=== PATIENT | female | born 1990 | race Two or more races ===

== ENCOUNTER → 2021-09-28 | Emergency (ER) | payer OTHER ==
[~2021-09-28] VITALS: Ht 165.1 cm; Wt 113.4 kg
== END | disposition home or self-care (01) ==
LOC: ER 11:16
DX: B34.9 Viral infection, unspecified (principal); Z20.822 Contact with and (suspected) exposure to COVID-19

== ENCOUNTER 2022-06-16 16:11 | Emergency (ER) | payer OTHER ==
[~2022-06-16] VITALS: Ht 165.1 cm; Wt 104.3 kg
[2022-06-16] MEDS ORDERED: LEVO-T25 MCG PO (16:59)
[2022-06-16] MEDS ORDERED: ORPHENADRINE C100 MG PO (19:52)
[2022-06-16] MEDS ORDERED: DICLOFENAC POTA50 MG PO (19:52)
== END 2022-06-16 21:13 | disposition home or self-care (01) ==
LOC: ER 16:11
DX: M54.32 Sciatica, left side (principal); M62.838 Other muscle spasm

== ENCOUNTER 2022-09-01 12:18 | Emergency (ER) | payer OTHER ==
[~2022-09-01] VITALS: Ht 165.1 cm; Wt 108.9 kg
[~2022-09-01 12:18] MED LIST: DICLOFENAC POTA50 MG PO; LEVO-T25 MCG PO; ORPHENADRINE C100 MG PO
[2022-09-01] MEDS ORDERED: LEVOTHYROXINE25 MCG PO (13:45)
== END 2022-09-01 17:28 | disposition home or self-care (01) ==
LOC: ER 12:18
DX: J06.9 Acute upper respiratory infection, unspecified (principal); Z20.822 Contact with and (suspected) exposure to COVID-19